=== PATIENT | male | born 1970 | race Caucasian/White ===

== ENCOUNTER 2016-09-25 06:36 | Day surgery (SDC) | payer OTHER ==
[~2016-09-25] VITALS: Ht 193 cm; Wt 137.7 kg
--- NOTE | 2016-10-01 08:33 | OR ---
ADMIT: 09/25/2016 RM/LOC: [facility] MR#: [id number] [address] [id number] [address] [place] [address] Operative/Delivery Room Report SEX: M AGE: 46 : 1970 SURGERY DATE: 09/25/2016 SURGEON: Keagan Potter MD PREOPERATIVE DIAGNOSIS: Umbilical hernia. POSTOPERATIVE DIAGNOSIS: Umbilical hernia. PROCEDURE: Repair of umbilical hernia with 6.4 cm Ventralex mesh. HIGHWALL DRILL OPERATOR: MANUEL Negron, whose assistance was necessary for tissue retraction. ANESTHESIA: General. ESTIMATED BLOOD LOSS: 10 mL. DESCRIPTION OF PROCEDURE: The patient was taken to the operating room and placed supine on the operating room table. General anesthesia was established. The abdomen was prepped and draped in the standard surgical fashion. A curvilinear infraumbilical incision was made in the skin. Dissection proceeded through the subcutaneous tissue of the hernia sac. The hernia sac was dissected carefully away from the overlying skin. The sac was then excised from the fascial margins circumferentially as well as a small piece of omentum which was in the hernia and this was sent as specimen. The remainder of the omentum was reduced intra-abdominally. The fascia was cleaned from surrounding fatty tissue. The defect measured 1.5 cm in diameter. A 6.4 cm Ventralex mesh was placed intraabdominally with good overlap of the defect. This was secured circumferentially in a transfascial manner with 0 silk suture. No tension was present upon completion. The umbilical skin was tacked to the repair site with 3-0 Vicryl suture. The deep tissue was closed with 3-0 Vicryl suture. Skin edges were approximated with 4- 0 Monocryl in a subcuticular fashion and Dermabond. Local anesthetic was injected and a dressing was applied. Sponge, needle, and instrument counts were correct at the end of the case. The patient tolerated the procedure well and transferred to the recovery area in stable condition. Keagan Potter MD/ minh JOB #: [id number] CC: Keagan Potter, Attending Physician Abdulaziz Contreras, Family Physician
== END 2016-09-25 13:26 | disposition home or self-care (01) ==
LOC: SSS 06:36
PROC: 0WUF0JZ Supplement Abdominal Wall with Synthetic Substitute, Open Approach (ICD-10-PCS; principal; 2016-09-25)
DX: K42.9 Umbilical hernia without obstruction or gangrene (principal); E11.9 Type 2 diabetes mellitus without complications; Z79.899 Other long term (current) drug therapy